=== PATIENT | female | born 1960 | race African-American/Black ===

== ENCOUNTER 2019-07-13 07:06 | Emergency (ER) | payer OTHER ==
[~2019-07-13] VITALS: Ht 162.6 cm; Wt 75.0 kg
[2019-07-13] MEDS ORDERED: KETOROLAC 15MG/ML VIAL IM ONE (08:15)
[2019-07-13 09:03] VITALS: BP 177/97
== END 2019-07-13 09:04 | disposition home or self-care (01) ==
LOC: ER 07:24
DX: M25.531 Pain in right wrist (principal)
CPT/HCPCS: 73110; 96372; 99283; J1885

== ENCOUNTER 2020-02-27 18:36 | Emergency (ER) | payer OTHER ==
[~2020-02-27] VITALS: Ht 175.3 cm; Wt 73.0 kg
[2020-02-27] MEDS ORDERED: KETOROLAC 60MG/2ML VIAL IM ONE (19:15)
[2020-02-27 23:25] VITALS: BP 128/70
== END 2020-02-27 22:06 | disposition home or self-care (01) ==
LOC: ER 18:36
DX: R07.89 Other chest pain (principal); I44.0 Atrioventricular block, first degree; J98.11 Atelectasis; R03.0 Elevated blood-pressure reading, without diagnosis of hypertension; V43.52XA Car driver injured in collision with other type car in traffic accident, initial encounter; Y93.89 Activity, other specified; Y92.488 Other paved roadways as the place of occurrence of the external cause
CPT/HCPCS: 71046; 93005; 96372; 99283; J1885